=== PATIENT | female | born 1980 | race Two or more races ===

== ENCOUNTER 2023-11-15 03:40 | Inpatient (IN) | payer OTHER ==
[~2023-11-15] VITALS: Ht 167.6 cm; Wt 78.5 kg
[2023-11-15 04:37] LABS: Urine Bacteria None Seen /hpf (None Seen)
[2023-11-15 04:43] LABS: Urine Blood 2+ /uL (Negative); Urine Clarity Ex.Turbid (Clear); Urine Protein, UAD TRACE (Negative); Urine Specific Gravity 1.026 (1.001-1.035); Urine Urobilinogen Normal (Negative); Urine WBC 31 /hpf (0 - 5); Urine WBC Clumps PRESENT /hpf (None Seen)
[2023-11-15 04:44] LABS: Urine Color Straw (Yellow)
[2023-11-15 05:20] LABS: Basophils # (auto) 0 10 ^3/uL (0-0.2); Basophils % (auto) 0.2 % (0.0-2.0); Eosinophils # (auto) 0 10 ^3/uL (0-0.8); Eosinophils % (auto) 0.2 % (0.0-7.0); Hematocrit 37.5 % (36.0-46.0); Hemoglobin 12.8 g/dL (12.2-16.2); Lymphocytes # (auto) 0.7 10 ^3/uL (0.4-5.4); Lymphocytes % (auto) 6.7 % (10.0-50.0); Mean Corpuscular Hemoglobin 28.2 pg (28.0-32.0); Mean Corpuscular Volume 83.1 fL (80.0-100.0); Monocytes # (auto) 0.3 10 ^3/uL (0-1.3); Monocytes % (auto) 2.5 % (0.0-12.0); Neutrophils # (auto) 9.2 10 ^3/uL (1.6-8.6); Neutrophils % (auto) 90.4 % (37.0-80.0); Nucleated Red Blood Cells % 0.1 %; Red Blood Cells 4.52 10^6/uL (4.0-5.20); Red Cell Distribution Width 13.4 % (11.8-14.3); White Blood Cell 10.1 10^3/uL (4.4-10.8)
[2023-11-15 05:29] LABS: Alanine Aminotransferase 15 U/L (7-40); Alkaline Phosphatase 75 U/L (46-116); Anion Gap 8 (5-15); Aspartate Aminotransferase 17 U/L (13-40); BUN/Creatinine Ratio 9.7 (10.0-20.0); Blood Urea Nitrogen 10 mg/dL (9-23); Carbon Dioxide 28 mmol/L (20-30); Chloride 105 mmol/L (98-107); Glucose 144 mg/dL (74-106); Potassium 3.6 mmol/L (3.5-5.1); Sodium 141 mmol/L (136-145)
[2023-11-15 05:30] LABS: Bilirubin, Total 0.3 mg/dL (0.2-1.0); Total Protein 7.9 g/dL (5.7-8.2)
[2023-11-15] MEDS: SODIUM CHLORIDE 0.9% 1,000 ML IV ONE ×2 (07:18→09:28)
[2023-11-15] MEDS: TAMSULOSIN HYDROCHLORIDE 0.4 MG CAP PO ONE (07:18)
[2023-11-15] MEDS: KETOROLAC TROMETH 30 MG/ML 1ML VIAL IV ONE (07:19)
[2023-11-15] MEDS: FUROSEMIDE 20 MG/2 ML VIAL IV ONE (07:19)
[2023-11-15 08:24] VITALS: RESP 18; O2SAT 98
[2023-11-15] MEDS ORDERED: DOCUSATE SOD 100 MG CAP PO PRN (08:45)
[2023-11-15] MEDS ORDERED: NITROGLYCERIN 0.4 MG SL TAB SL PRN (08:45)
[2023-11-15] MEDS ORDERED: MORPHINE SULFATE INJ 2 MG/ml SYRG IV PRN ×2 (08:45)
[2023-11-15] MEDS ORDERED: ONDANSETRON HCL 4 MG/2 ML VIAL IV PRN (08:45)
[2023-11-15] MEDS: cefTRIAXone 1GM/50ML D5W 50 ML IV ONE (09:15)
[2023-11-15 09:50] VITALS: PULSE 71; RESP 16; O2SAT 96
[2023-11-15 09:51] VITALS: BP 145/93; PULSE 77; RESP 16; TEMP 98.5; O2SAT 99
[2023-11-15] MEDS: HYDROcodone-ACET 5/325MG TAB PO PRN (11:59)
[2023-11-15 17:00] VITALS: BP 109/66; PULSE 81; RESP 16; TEMP 99.2; O2SAT 98
[2023-11-15] MEDS: TAMSULOSIN HYDROCHLORIDE 0.4 MG CAP PO SCH (18:27)
[2023-11-15 20:00] VITALS: PULSE 84; RESP 18; O2SAT 96
[2023-11-15 21:00] VITALS: BP 124/83; PULSE 84; RESP 18; TEMP 98.7
[2023-11-16 05:00] VITALS: BP 104/55; PULSE 78; RESP 16; TEMP 97.9; O2SAT 98
[2023-11-16 06:25] LABS: Basophils # (auto) 0 10 ^3/uL (0-0.2); Basophils % (auto) 0.3 % (0.0-2.0); Eosinophils # (auto) 0.1 10 ^3/uL (0-0.8); Eosinophils % (auto) 1.3 % (0.0-7.0); Hematocrit 34.4 % (36.0-46.0); Hemoglobin 11.7 g/dL (12.2-16.2); Lymphocytes # (auto) 1.4 10 ^3/uL (0.4-5.4); Lymphocytes % (auto) 29.5 % (10.0-50.0); Mean Corpuscular Hemoglobin 28.1 pg (28.0-32.0); Mean Corpuscular Hgb Conc. 33.8 g/dL (32.0-36.0); Mean Corpuscular Volume 83.1 fL (80.0-100.0); Monocytes # (auto) 0.3 10 ^3/uL (0-1.3); Monocytes % (auto) 5.9 % (0.0-12.0); Nucleated Red Blood Cells % 0.1 %; Red Blood Cells 4.15 10^6/uL (4.0-5.20); Red Cell Distribution Width 13.9 % (11.8-14.3); White Blood Cell 4.8 10^3/uL (4.4-10.8)
[2023-11-16 06:39] LABS: Alanine Aminotransferase 10 U/L (7-40); Albumin 3.9 g/dL (3.2-4.8); Alkaline Phosphatase 61 U/L (46-116); Anion Gap 8 (5-15); Aspartate Aminotransferase 16 U/L (13-40); BUN/Creatinine Ratio 9.3 (10.0-20.0); Bilirubin, Total 0.5 mg/dL (0.2-1.0); Blood Urea Nitrogen 7 mg/dL (9-23); Calcium 8.7 mg/dL (8.7-10.4); Carbon Dioxide 26 mmol/L (20-30); Chloride 106 mmol/L (98-107); Glucose 101 mg/dL (74-106); Potassium 3.3 mmol/L (3.5-5.1); Sodium 140 mmol/L (136-145); Total Protein 6.4 g/dL (5.7-8.2)
[2023-11-16 08:00] VITALS: PULSE 74; RESP 18; O2SAT 97
[2023-11-16 08:33] LABS: INR 0.98 (0.9-1.15); Partial Thromboplastin Time 26.8 SEC (24.5-34.5); Prothrombin Time 10.4 sec (9.3-11.8)
[2023-11-16 09:00] VITALS: BP 116/64; PULSE 74; RESP 18; TEMP 97.8; O2SAT 97
[2023-11-16] MEDS: cefTRIAXone 1GM/50ML D5W 50 ML IV SCH (09:49)
[2023-11-16] MEDS: SODIUM CHLORIDE 0.9% 1,000 ML IV SCH (09:49)
[2023-11-16] MEDS: POTASSIUM EFFERVESENT TAB 25 MEQ PO ONE (09:49)
[2023-11-16] MEDS: ACETAMINOPHEN 325 MG TAB PO PRN (10:48)
[2023-11-16 12:08] LABS: Amphetamine Screen, Urine Neg (NEGATIVE); Barbiturate Scree,Urine Neg (NEGATIVE)
[2023-11-16 12:09] LABS: Benzodiazephine Screen, Urine Neg (NEGATIVE); Cannabinoid Screen, Urine Neg (NEGATIVE); Cocaine Screen, Urine Neg (NEGATIVE); Opiate Scree,Urine Neg (NEGATIVE); Phencyclidine Screen, Urine Neg (NEGATIVE)
[2023-11-16 12:14] VITALS: BP 118/69; PULSE 75; RESP 18; TEMP 98.5; O2SAT 97
[2023-11-16 16:32] VITALS: BP 143/85; PULSE 83; RESP 19; TEMP 98.2; O2SAT 98
[2023-11-16] MEDS ORDERED: CEPH500T PO (17:35)
[2023-11-16 17:46] VITALS: BP 143/85; PULSE 83; RESP 19; TEMP 98.2; O2SAT 98
== END 2023-11-16 18:10 | disposition home or self-care (01) | DRG 690 ==
LOC: ER 03:40 → OVERFLOW 08:46 → EAST 10:01
PROVIDERS: ADMIT Internal Medicine; ATTEND Internal Medicine
DX: N13.6 Pyonephrosis (principal); N20.2 Calculus of kidney with calculus of ureter; J45.909 Unspecified asthma, uncomplicated; E87.6 Hypokalemia; Z87.442 Personal history of urinary calculi; Z82.61 Family history of arthritis; Z83.3 Family history of diabetes mellitus; Z82.49 Family history of ischemic heart disease and other diseases of the circulatory system; Z83.42 Family history of familial hypercholesterolemia
CPT/HCPCS: 36415; 74176; 76775; 80053; 80307; 81001; 81025; 82360; 85025; 85610; 85730; 96365; 96375; G0378; J1885